=== PATIENT | female | born 1985 | race Caucasian/White ===

== ENCOUNTER 2022-05-11 11:41 | Outpatient (CLI) | payer OTHER, SELFPAY ==
--- OUTSIDE RECORDS SUMMARY | 2022-05-11 11:59 | XMS_ITS | Encounter Summary ---
:1985 Author Organization [place] Address [address] [place] [id number] Care Team Providers Name Role Phone Mp Cordero MD Primary Care Provider Unavailable Reason for Visit Reason Comments Hypertension Encounter Details Date Type Department Care Team Description 10/12/2021 - Emergency [facility] Rachel Henley MD Hypertension, unspecified type; 10/13/2021 [facility] Emergency [facility] Tracee rtness of breath Dept [place] [address] [place] [address] [phone] Social History Tobacco Use Types Packs/Day Years Used Date Smoking Tobacco: Never Smokeless Tobacco: Never Alcohol Use Standard Drinks/Week Comments Yes 0.8 (1 standard drink = 0.6 oz pure alco hol) Sex Assigned at Date Recorded Not on file COVID-19 Exposure Response Date Recorded In the last 10 days, have you been in contact with No / Unsu re 10/12/2021 8:57 PM CDT someone who was confirmed or suspected to have Coronavirus/COVID-19? documented as of this encounter Last Filed Vital Signs Vital Sign Reading Time Taken Comments Blood Pressure 148/85 10/13/2021 12:18 AM CDT Pulse 91 10/13/2021 12:18 AM CDT Temperature 36.4 ??C (97.5 ??F) 10/12/2021 9:34 PM CDT Respiratory Rate 18 10/12/2021 9:34 PM CDT Oxygen Saturation 97% 10/12/2021 9:34 PM CDT Inhaled Oxygen Concentration - - Weight - - Height - - Body Mass Index - - documented in this encounter Discharge Instructions Discharge InstructionsJose Manuel Henley MD - 10/13/2021 12:07 AM CDT Discharge Instructions Hypertension - High Blood Pressure During you visit to the Emergency Department, your blood pressure was higher than the recommended blood pressure. This may be related to stress, pain, medication or other temporary conditions. In thesecases, your blood pressure may return to normal on its own. If you have a history of high blood pressure, you may need to have your provider adjust your medications. Sometimes, your high measurement here may indicate that you have developed high blood pressure that will stay high unless it is treated.As a general rule, high blood pressure causes problems over years rather than days, weeks, or months. So, while it is important to treat blood pressure, it is rarely important to treat blood pressure immediately. Occasionally we will begin a medication in the Emergency Department; more often we will recommend close follow-up for medications with a primary doctor/clinic. Generally, every Emergency Department visit should have a follow-up clinic visit with either a primary or a specialty clinic/provider. Please follow-up as instructed by your emergency provider today. Return to the Emergency Department if you start to have: A severe headache. Chest pain. Shortness of breath. Weakness or numbness that affects one part of the body. Confusion. Vision changes. Significant swelling of legs and/or eyes. A reaction to any medication started in the Emergency Department. What can I do to help myself? Avoid alcohol. Take any blood pressure medicine that you are prescribed. Get a good night???s sleep. Lower your salt intake. Exercise. Lose weight. Manage stress. See your doctor regularly If blood pressure medication was started in the Emergency Department: The medicine may not have an immediate effect. The body and brain determine what blood pressure you have. The medicine???s job is to retrain the body???s ???thermostat?? to a lower blood pressure. You will need to follow up with your provider to see how this medicine is working for you. If you were given a prescription for medicine here today, be sure to read all of the information (including the package insert) that comes with your prescription. This will include important information about the medicine, its side effects, and any warnings that you need to know about. The pharmacist who fills the prescription can provide more information and answer questions you may have about the medicine. If you have questions or concerns that the pharmacist cannot address, please call or return to the Emergency Department. Remember that you can always come back to the Emergency Department if you are not able to see your regular provider in the amount of time listed above, if you get any new symptoms, or if there is anything that worries you. documented in this encounter ED Notes Magda Jones RN - 10/12/2021 9:36 PM CDT Images from the original note were not included. Pt reports elevated BP in the 180s systolic all day. Denies hx of HTN. Denies chest pain, notes it feels hard to take a deep breath. Traveled by plane this past weekend. Tonight noted increased tightness in left calf. Calf does appear more swollen when compared to right. ABCs intact A&Ox4 Triage Assessment Row Name 10/12/21 2185 Triage Assessment (Adult) Airway WDL WDL Respiratory WDL Respiratory WDL X;rhythm/pattern Rhythm/Pattern, Respiratory other (see comments) feels like she can't take a deep breath Jose Manuel Henley MD - 10/12/2021 8:56 PM CDT History Chief Complaint: Hypertension HPI Lyubov Gomez is a 36 year old female with history of high cholesterol who presents with chest pain and leg swelling. Patient is concerned of hypertension as her systolic BP has been in the 130slast week, and today it has been 180s all day. 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 She was told to follow up with PCP and has not yet. She also complains of intermittent dull chest pain. She also felt hard to take a deep breath sometimes and denies pain with breathing. Her left calf feels tight but not painful. Her left ankle was swollen last night that has resolved. She recently traveled to [place] by plane for vacation this past weekend. 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 She is not on BP medications. She reports a history of high cholesterol. No fever, chills, cough. No headache, vision changes, weakness, numbness, speech change, or walking difficulty. Review of Systems Constitutional: Negative for chills and fever. Eyes: Negative for visual disturbance. Respiratory: Positive for shortness of breath. Negative for cough. Cardiovascular: Positive for chest pain. Negative for leg swelling. Musculoskeletal: Positive for joint swelling. Neurological: Negative for speech difficulty, weakness, numbness and headaches. All other systems reviewed and are negative. Allergies: No Known Allergies Medications: No current outpatient medications on file. Past Medical History: Pain in joint Past Surgical History: No past surgical history on file. Family History: No family history on file. Social History: Presents alone via private car. Never smoker. Occasional alcohol use, 1 drink per week. Physical Exam Patient Vitals for the past 24 hrs: BP Temp Temp src Pulse Resp SpO2 10/13/21 0018 (!) 148/85 -- -- 91 -- -- 10/12/21 2134 (!) 191/101 97.5 ??F (36.4 ??C) Temporal (!) 131 18 97 % Physical Exam Constitutional: Well appearing. HEENT: Atraumatic. PERRL. EOMI. Moist mucous membranes. Neck: Soft. Supple. No JVD. Cardiac: Regular rate and rhythm. No murmur or rub. Respiratory: Clear to auscultation bilaterally. No respiratory distress. No wheezing, rhonchi, or rales. Abdomen: Soft and nontender. Nondistended. Musculoskeletal: No edema. Normal range of motion. Neurologic: Alert and oriented. Normal tone and bulk. 5/5 strength in bilateral upper and lower extremities. Sensation to light touch intact throughout. Normal gait. Skin: No rashes. No edema. Psych: Normal affect. Normal behavior. Emergency Department Course ECG ECG obtained at 2143, ECG read at 2310 Sinus tachycardia. Rate 106 bpm. AL interval 176 ms. QRS duration 74 ms. QT/QTc 362/480 ms. P-R-T axes 37 26 20. Imaging: XR Chest 2 Views Final Result IMPRESSION: Heart size is normal. Lungs are clear bilaterally. Mediastinum and visualized bony structures are unremarkable. Report per radiology Laboratory: Labs Ordered and Resulted from Time of ED Arrival to Time of ED Departure COMPREHENSIVE METABOLIC PANEL - Abnormal Result Value Sodium 142 Potassium 3.3 (*) Chloride 108 Carbon Dioxide (CO2) 28 Anion Gap 6 Urea Nitrogen 12 Creatinine 0.71 Calcium 8.7 Glucose 110 (*) Alkaline Phosphatase 69 AST 30 ALT 68 (*) Protein Total 6.9 Albumin 3.4 Bilirubin Total 0.2 GFR Estimate >90 D DIMER QUANTITATIVE - Normal D-Dimer Quantitative 0.36 TROPONIN I - Normal Troponin I High Sensitivity 5 CBC WITH PLATELETS AND DIFFERENTIAL WBC Count 8.0 RBC Count 4.30 Hemoglobin 13.2 Hematocrit 37.8 MCV 88 MCH 30.7 MCHC 34.9 RDW 12.4 Platelet Count 249 % Neutrophils 66 % Lymphocytes 26 % Monocytes 5 % Eosinophils 3 % Basophils 0 % Immature Granulocytes 0 NRBCs per 100 WBC 0 Absolute Neutrophils 5.2 Absolute Lymphocytes 2.1 Absolute Monocytes 0.4 Absolute Eosinophils 0.2 Absolute Basophils 0.0 Absolute Immature Granulocytes 0.0 Absolute NRBCs 0.0 Emergency Department Course: Reviewed: I reviewed nursing notes, vitals, past medical history and Care Everywhere Assessments: 2145 I obtained history and examined the patient as noted above. I rechecked the patient and explained findings. Interventions: 0010 KCl tablet 30mEq po Disposition: The patient was discharged to home. Impression & Plan Medical Decision Making: Lyubov Gomez Is a 36-year-old woman who is afebrile and noted to be hypertensive. She is neurologically intact. EKG and troponin are within normal limits. Lab work-up is unremarkable outside some mild hypokalemia. She is neurologically intact. D-dimer is within normal limits and she has some he aviness in her chest with no specific pleuritic chest pain or tachycardia or hypoxia to suggest a PE. She is some vague feeling in her left calf that may be related to overuse recently while she traveled with no edema or signs of infection or acute ischemic limb. D-dimer is within normal limits makinga PE DVT exceedingly unlikely. Her blood pressures improved spontaneously. We discussed that there is no endorgan ischemia and she is safe to follow close with her primary care physician. Discussed starting a low-dose medication such as lisinopril versus follow-up primary care physician and she would prefer follow- up with her primary care physician which is reasonable. We discussed supportive care athome and strict return precautions were given. Questions were answered and she was in no distress attime of discharge. Diagnosis: ICD-10-CM 1. Hypertension, unspecified type I10 2. Shortness of breath R06.02 Scribe Disclosure: I, Jose Armando Lincoln, am serving as a scribe at 9:46 PM on 10/12/2021 to document services personally performed by Jose Manuel Henley MD based on my observations and the provider's statements to me. oJse Manuel Henley MD 10/13/21 [id number] documented in this encounter Plan of Treatment Not on filedocumented as of this encounter Procedures Procedure Name Priority Date/Time Associated Comments Diagnosis XR CHEST 2 VIEWS STAT 10/12/2021 11:47 Results for this PM CDT procedure are i n the results section. EXTRA TUBE STAT 10/12/2021 10:45 Results for this PM CDT procedure are i n the results section. EXTRA RED TOP TUBE STAT 10/12/2021 10:45 Resul ts for this PM CDT procedure are i n the results section. CBC WITH PLATELETS AND STAT 10/12/2021 10:45 R esults for this DIFFERENTIAL PM CDT procedure are i n the results section. CBC WITH PLATELETS & STAT 10/12/2021 10:45 Res ults for this DIFFERENTIAL PM CDT procedure are i n the results section. TROPONIN I STAT 10/12/2021 10:45 Results for this PM CDT procedure are i n the results section. D DIMER QUANTITATIVE STAT 10/12/2021 10:45 Res ults for this PM CDT procedure are i n the results section. COMPREHENSIVE STAT 10/12/2021 10:45 Results fo r this METABOLIC PANEL PM CDT procedure ar e in the results section. EKG 12-LEAD, TRACING STAT 10/12/2021 9:43 PM R esults for this ONLY CDT procedure are i n the results section. documented in this encounter Results XR Chest 2 Views (10/12/2021 11:47 PM CDT) Anatomical Region Laterality Modality Chest Digital Radiography Specimen (Source) Anatomical Collection Method Collection Time Re ceived Time Location / / Volume Laterality 10/12/2021 11:37 PM CDT Impressions 10/12/2021 11:59 PM CDT IMPRESSION: Heart size is normal. Lungs are clear bi laterally. Mediastinum and visualized bony structures are unremarkable. Narrative 10/12/2021 11:59 PM CDT EXAM: XR CHEST 2 VW LOCATION: [facility] DATE/TIME: 10/12/2021 11:37 PM INDICATION: Shortness of breath COMPARISON: 04/08/2007 Procedure Note Darrian Ang MD - 10/13/2021Formatt ing of this note might be different from the original. EXAM: XR CHEST 2 VW LOCATION: [facility] DATE/TIME: 10/12/2021 11:37 PM INDICATION: Shortness of breath COMPARISON: 04/08/2007 IMPRESSION: Heart size is normal. Lungs are clear bi laterally. Mediastinum and visualized bony structures are unremarkable. Jose Manuel Henley MD IMG DIAGNOSTIC IMAGING ORDER LEYLA Extra Red Top Tube (10/12/2021 10:45 PM CDT) P athologist Signature Hold Specimen JIC 10/13/2021 [facility] 12:03 AM CDT Specimen Anatomical Collection Method / Collection Time Recei mari Time (Source) Location / Volume Laterality Blood VENOUS LINE / Venipuncture / 10/12/2021 10:45 10/13/19 22 Unknown Unknown PM CDT 10:53 PM CDT Jose Manuel Henley MD LAB - BLOOD ORDERABLES Performing Organization Address City/State/ZIP Code Phon [place] [phone] [facility] [address] Lab (1st floor, no room number) CBC with platelets and differential (10/12/2021 10:45 PM CDT) Analysis Performed At Patho logist Time Signature WBC Count 8.0 4.0 - 11.0 10/12/2021 [facility] 10e3/uL 10:57 PM CDT RBC Count 4.30 3.80 - 10/12/2021 [facility] 5.20 10:57 PM CDT 10e6/uL Hemoglobin 13.2 11.7 - 10/12/2021 [facility] 15.7 g/dL 10:57 PM CDT Hematocrit 37.8 35.0 - 10/12/2021 [facility] 47.0 % 10:57 PM CDT MCV 88 78 - 100 10/12/2021 [facility] fL 10:57 PM CDT MCH 30.7 26.5 - 10/12/2021 [facility] 33.0 pg 10:57 PM CDT MCHC 34.9 31.5 - 10/12/2021 [facility] 36.5 g/dL 10:57 PM CDT RDW 12.4 10.0 - 10/12/2021 [facility] 15.0 % 10:57 PM CDT Platelet Count 249 150 - 450 10/12/2021 [facility] 10e3/uL 10:57 PM CDT % Neutrophils 66 % 10/12/2021 [facility] 10:57 PM CDT % Lymphocytes 26 % 10/12/2021 [facility] 10:57 PM CDT % Monocytes 5 % 10/12/2021 [facility] 10:57 PM CDT % Eosinophils 3 % 10/12/2021 [facility] 10:57 PM CDT % Basophils 0 % 10/12/2021 [facility] 10:57 PM CDT % Immature 0 % 10/12/2021 [facility] Granulocytes 10:57 PM CDT NRBCs per 100 WBC 0 <1 /100 10/12/2021 [facility] RY 10:57 PM CDT Absolute 5.2 1.6 - 8.3 10/12/2021 [facility] Neutrophils 10e3/uL 10:57 PM CDT Absolute 2.1 0.8 - 5.3 10/12/2021 [facility] Lymphocytes 10e3/uL 10:57 PM CDT Absolute 0.4 0.0 - 1.3 10/12/2021 [facility] Monocytes 10e3/uL 10:57 PM CDT Absolute 0.2 0.0 - 0.7 10/12/2021 [facility] Eosinophils 10e3/uL 10:57 PM CDT Absolute 0.0 0.0 - 0.2 10/12/2021 [facility] Basophils 10e3/uL 10:57 PM CDT Absolute Immature 0.0 <=0.4 10/12/2021 [facility] Granulocytes 10e3/uL 10:57 PM CDT Absolute NRBCs 0.0 10e3/uL 10/12/2021 [facility] 10:57 PM CDT Specimen Anatomical Collection Method / Collection Time Recei mari Time (Source) Location / Volume Laterality Blood VENOUS LINE / Venipuncture / 10/12/2021 10:45 10/13/19 22 Unknown Unknown PM CDT 10:53 PM CDT Jose Manuel Henley MD LAB - BLOOD ORDERABLES Performing Organization Address City/[facility]/ZIP Code Phon [place] [address] Care [facility] [address] Lab (1st floor, no room number) Troponin I (now) (10/12/2021 10:45 PM CDT) P athologist Signature Troponin I High 5 <54 ng/L 10/12/2021 [facility] Sensitivity 11:14 PM CDT Comment: This Troponin-I result was obta ined using a Siemens Dimension Lovell High Sensitivity Troponin-I assay (TNIH). Eff ective 05/02/21, nine labs/sites in the [facility] switched from a Siemens Lovell Contemporary Troponin I assay (CTNI) to a Siemens Lovell High-Sensitivity Troponi n I assay (TNIH). Specimen Anatomical Collection Method / Collection Time Recei mari Time (Source) Location / Volume Laterality Blood VENOUS LINE / Venipuncture / 10/12/2021 10:45 10/13/19 22 Unknown Unknown PM CDT 10:53 PM CDT Jose Manuel Henley MD LAB - BLOOD ORDERABLES Performing Organization Address City/[facility]/ZIP Code Phon [place] [address] Care Lab [address] Lab (1st floor, no room number) (ABNORMAL) Comprehensive metabolic panel (10/12/2021 10:45 PM CDT) Patholo gist Method Time Signature Sodium 142 133 - 144 10/12/2021 [facility] mmol/L 11:12 PM CDT Potassium 3.3 (L) 3.4 - 5.3 10/12/2021 [facility] mmol/L 11:12 PM CDT Chloride 108 94 - 109 10/12/2021 [facility] mmol/L 11:12 PM CDT Carbon Dioxide 28 20 - 32 10/12/2021 LABORATORY (CO2) mmol/L 11:12 PM CDT Anion Gap 6 3 - 14 10/12/2021 [facility] mmol/L 11:12 PM CDT Urea Nitrogen 12 7 - 30 10/12/2021 LAB[facility]ORY mg/dL 11:12 PM CDT Creatinine 0.71 0.52 - 10/12/2021 [facility] 1.04 mg/dL 11:12 PM CDT Calcium 8.7 8.5 - 10.1 10/12/2021 [facility] mg/dL 11:12 PM CDT Glucose 110 (H) 70 - 99 10/12/2021 [facility] mg/dL 11:12 PM CDT Alkaline 69 40 - 150 10/12/2021 [facility] Phosphatase U/L 11:12 PM CDT AST 30 0 - 45 U/L 10/12/2021 [facility] 11:12 PM CDT ALT 68 (H) 0 - 50 U/L 10/12/2021 [facility] 11:12 PM CDT Protein Total 6.9 6.8 - 8.8 10/12/2021 [facility] g/dL 11:12 PM CDT Albumin 3.4 3.4 - 5.0 10/12/2021 [facility] g/dL 11:12 PM CDT Bilirubin Total 0.2 0.2 - 1.3 10/12/2021 [facility] mg/dL 11:12 PM CDT GFR Estimate >90 >60 10/12/2021 [facility] mL/min/1.7 11:12 PM CDT 3m2 Comment: Effective May 30, 2021 eGF Rcr in adults is calculated using the 2020 CKD-EPI creatinine equation which includ es age and gender (Iliana et al., NEJM, DOI: 10.1056/LAWKam3786075) Specimen Anatomical Collection Method / Collection Time Recei mari Time (Source) Location / Volume Laterality Blood VENOUS LINE / Venipuncture / 10/12/2021 10:45 10/13/19 22 Unknown Unknown PM CDT 10:53 PM CDT Jose Manuel Henley MD LAB - BLOOD ORDERABLES Performing Organization Address City/State/ZIP Code [place] [address] Care [facility] [address] Lab (1st floor, no room number) D dimer quantitative (10/12/2021 10:45 PM CDT) Analysis Performed At Patho logist Time Signature D-Dimer 0.36 0.00 - 10/12/2021 LABORATORY Quantitative 0.50 ug/mL 11:18 PM CDT FEU Specimen Anatomical Collection Method / Collection Time Recei mari Time (Source) Location / Volume Laterality Blood VENOUS LINE / Venipuncture / 10/12/2021 10:45 10/13/19 22 Unknown Unknown PM CDT 10:53 PM CDT Narrative [facility] - 10/12/2021 11:18 PM CDT This D-dimer assay is intended for use i n conjunction with a clinical pretest probability assessment model to exclude pulmonary embolism (PE) and deep venous thrombosis (DVT) in outpatients suspecte d of PE or DVT. The cut-off value is 0.50 ug/mL FEU. Jose Manuel Henley MD LAB - BLOOD ORDERABLES Performing Organization Address City/State/ZIP Code [place] [address] [facility] [address] Lab (1st floor, no room number) EKG 12-lead, tracing only (10/12/2021 9:43 PM CDT) Component Value Ref Range Test Analysis Performed Pathologis t Method Time At Signature Systolic Blood mmHg RADIOLOGY Pressure RESULTS Diastolic Blood mmHg RADIOLOGY Pressure RESULTS Ventricular Rate 106 BPM RADIOLOGY RESULTS Atrial Rate 106 BPM RADIOLOGY RESULTS AL Interval 176 ms RADIOLOGY RESULTS QRS Duration 74 ms RADIOLOGY RESULTS QT 362 ms RADIOLOGY RESULTS QTc 480 ms RADIOLOGY RESULTS P [place] 37 degrees RADIOLOGY RESULTS R AXIS 26 degrees RADIOLOGY RESULTS T [place] 20 degrees RADIOLOGY RESULTS Interpretation Sinus tachycardia RADIOLO GY ECG Otherwise normal ECG RESULTS When compared with ECG of 08-APR-2007 12:18, Vent. rate has increased BY ??46 BPM T wave amplitude has decreased in Anterolateral leads QT has lengthened Confirmed by - EMERGENCY [facility] Bermudez PHYSICIAN ([id number]), food expeditor MATILDA HERRERA ([id number]) on 10/13/2021 7:13:46 AM Specimen Anatomical Collection Method Collection Time Receive d Time (Source) Location / / Volume Laterality 10/12/2021 9:43 PM 7:13 CDT AM CDT Jose Manuel Henley MD ECG ORDERABLES Performing Organization Address City/State/ZIP Code Phon e Number RADIOLOGY RESULTS documented in this encounter Visit Diagnoses Diagnosis Hypertension, unspecified type Shortness of breath documented in this encounter Administered Medications Inactive Administered Medications - up to 3 most recent administrations Medication Order MAR Action Action Date Dose Rate Site potassium chloride ER (KLOR-CON Given 10/13/2021 12:10 AM CDT 40 mEq M) CR tablet 40 mEq 40 mEq, Oral, ONCE, On [place]elima 10/12/21 at 2335, For 1 dose, DO NOT CRUSH documented in this encounter Active and Recently Administered Medications Times are shown in CDT. Scheduled Medication Order 10/11/2021 10/12/2021 10/13/2021 potassium chloride ER (KLOR-CON M) CR tablet 40 mEq (COMPLETED) 0010 (Given - Provider: Jennie Lu RN) 40 mEq, Oral, ONCE, On [place]elima 10/12/21 at 2335, For 1 dose, DO NOT CR [facility] documented in this encounter Care Teams Pool Hand Relationship Specialty Start Date End Date Mp Cordero MD PCP - General Family Practice 03/12/11 documented as of this encounter
--- OUTSIDE RECORDS SUMMARY | 2022-05-11 11:59 | XMS_ITS | Clinical Summary ---
:1985 Author Organization [facility] Address [address] [place] [id number] Care Team Providers Name Role Phone Mp Cordero MD Primary Care Provider Unavailable Allergies No known active allergies Active Problems Problem Noted Date [facility] 03/18/2013 Overview: State Tier Level: Tier 0 Status: n/a Mask Former: n/a See Letters for [facility] Care Plan Pain in joint, ankle and foot 03/12/2011 Social History Tobacco Use Types Packs/Day Years Used Date Smoking Tobacco: Never Smokeless Tobacco: Never Alcohol Use Standard Drinks/Week Comments Yes 0.8 (1 standard drink = 0.6 oz pure alco hol) Sex Assigned at Date Recorded Not on file Last Filed Vital Signs Vital Sign Reading Time Taken Comments Blood Pressure 148/85 10/13/2021 12:18 AM CDT Pulse 91 10/13/2021 12:18 AM CDT Temperature 36.4 ??C (97.5 ??F) 10/12/2021 9:34 PM CDT Respiratory Rate 18 10/12/2021 9:34 PM CDT Oxygen Saturation 97% 10/12/2021 9:34 PM CDT Inhaled Oxygen Concentration - - Weight 98.2 kg (216 lb 6.4 oz) 03/12/2011 10:59 AM CDT Height 171.5 cm (5' 7.5) 03/12/2011 10:59 AM CDT Body Mass Index 33.39 03/12/2011 10:59 AM CDT Plan of Treatment Health Maintenance Due Date Last Done Comments ADVANCE CARE PLANNING 1985 ANNUAL REVIEW OF HM ORDERS 1985 HEPATITIS B IMMUNIZATION (1 1984 of 3 - 3-dose series) YEARLY PREVENTIVE VISIT 1984 HIV SCREENING 09/28/1999 HEPATITIS C SCREENING 2002 PAP 2005 PHQ-2 (once per calendar 06/10/2021 year) COVID-19 Vaccine (4 - 07/06/2021 05/11/2021, 10/06/2020, Booster for Moderna series) 09/08/2020 INFLUENZA VACCINE (#1) 2022 05/11/2021, 04/05/2020, 04/17/2019, Additional history exists DTAP/TDAP/TD IMMUNIZATION 12/29/2025 12/30/2015 (2 - Td or Tdap) IPV IMMUNIZATION Aged Out No longer eligi ble based on patient 's age to complete this topic MENINGITIS IMMUNIZATION Aged Out No longe r eligible based on patient 's age to complete this topic Pneumococcal Vaccine: Aged Out No longer eligible Pediatrics (0 to 5 Years) based on patient's age and At-Risk Patients (6 to to co mplete this topic 64 Years) Insurance Payer Benefit Plan / Subscriber ID Effective Phone Address T ype Group Dates [facility] [id number] 2021-Prese [phone] [address] [address] Jared Chapman Personal/Family Spouse 1985 [address] (Home) [place] [address] Care Teams Licsw Relationship Specialty Start Date End Date Mp Cordero MD PCP - General Family Practice 03/12/11
--- OUTSIDE RECORDS SUMMARY | 2022-05-11 12:00 | XMS_ITS | Encounter Summary ---
:1985 Author Organization [facility] Address [address] [place] [address] Care Team Providers Name Role Phone Mp Cordero MD Primary Care Provider Unavailable Encounter Details Date Type Department Care Team Description 10/12/2021 Travel Social History Tobacco Use Types Packs/Day Years [...] have Coronavirus/COVID-19? documented as of this encounter Plan of Treatment Not on filedocumented as of this encounter Visit Diagnoses Not on filedocumented in this encounter Care Teams Public Speaking Professor Relationship Specialty Start Date End Date Mp Cordero MD PCP - General Family Practice 03/12/11 documented as of this encounter
--- OUTSIDE RECORDS SUMMARY | 2022-05-11 12:00 | XMS_ITS | Encounter Summary ---
:1985 Author Organization [facility] Address [address] [place] [address] Care Team Providers Name Role Phone Mp Cordero MD Primary Care Provider Unavailable Reason for Visit Reason Comments Musculoskeletal Problem Encounter Details Date Type Department Care Team Description 03/12/2011 Office Visit Miko Sellers Mp Cordero Pain in joint, ankle Physicians [facility], and foot (Primary Dx) [address] [place] [phone] Social History Tobacco Use Types Packs/Day Years Used Date Smoking Tobacco: Never Smokeless Tobacco: Never Alcohol Use Standard Drinks/Week Comments Yes 0.8 (1 standard drink = 0.6 oz pure alco hol) Sex Assigned at Date Recorded Not on file documented as of this encounter Last Filed Vital Signs Vital Sign Reading Time Taken Comments Blood Pressure 140/60 03/12/2011 10:59 AM CDT Pulse 116 03/12/2011 11:00 AM CDT Temperature 37 ??C (98.6 ??F) 03/12/2011 11:01 AM CDT Respiratory Rate 18 03/12/2011 10:59 AM CDT Oxygen Saturation - - Inhaled Oxygen Concentration - - Weight 98.2 kg (216 lb 6.4 oz) 03/12/2011 10:59 AM CDT Height 171.5 cm (5' 7.5) 03/12/2011 10:59 AM CDT Body Mass Index 33.39 03/12/2011 10:59 AM CDT documented in this encounter Progress Notes Mp Cordero MD - 03/12/2011 12:44 PM CDT Patient complaint: left ankle pain onset; about 6 months, getting worse, There is no Old or recent injury or Physical activity that might easily explain this particular problem. brief summary of history of problem : she plays v ball and soft ball, No hx of much ankle sprains Has noted some sudden noise and pain, without locking left lateral ankle, she was told one time she had a stress fx in foot , not sure whereor what. She has not pain on walking, the pain can come when she laterally stresses joint getting in adout ofthe car. No swelling, feeling it most every day now Discussion of any physical findings that are relevant: Exam of the ankle reveals it to have a normalrange of motion, no specific pain on motion and no synovial thickening or edema on the dorsum or thesides of the ankle. Muscles of the calf are well developed and there is no foot atrophy and no tinel's sign on palpation. She may be a bit tender in lateral stress but not sure this duplicates what shefeels, AP and lateral Left ankle joint show normal mortise, normal distal tibia and fibula. No soft tissue swelling is noted. ASSESSMENT: could have a subluxing tendon around the lateral malleolus/left ankle PLAN: suggest she see Dr Enrique Melo, orthopedic bibliographic services specialist. She is in her first trimester, so we shielded abdomen today documented in this encounter Nursing Notes 03/12/2011 10:45 AM CDT >> RIVERA RICEAbFIDENCIOKAJAL Mon Mar 12, 2011 11:02 AM Lyubov Chapman is here for left ankle pain. Denies any trauma. Questioned patient about current smoking habits. Pt. has never smoked. Body mass index is 33.39 kg/(m^2). BP Cuff left Arm L Cuff PULSE regular My Chart: CLASSIFICATION OF OVERWEIGHT AND OBESITY BY BMI Obesity Class BMI(kg/m2) Underweight < 18.5 Normal 18.5-24.9 Overweight 25.0-29.9 OBESITY I 30.0-34.9 II 35.0-39.9 EXTREME OBESITY III >40 Patient's BMI Body mass index is 33.39 kg/(m^2). http://hin.nhlbi.nih.gov/menuplanner/menu.cgi documented in this encounter Plan of Treatment Not on filedocumented as of this encounter Procedures Procedure Name Priority Date/Time Associated Diagnosis Comme nts XR ANKLE LEFT G/E 3 Routine 03/12/2011 Pain in joint, ankle Results for this VIEWS and foot procedure are i n the results section . documented in this encounter Results X-ray lt ankle G/E 3 views* (03/12/2011) Anatomical Region Laterality Modality Leg, Ankle, Foot Left Other Narrative 03/12/2011 [facility] Phone: [phone] * Fax: [phone], [place] [address] Age: 25 Y Work Phone: Dept No.: [id number] LYUBOV CHAPMAN : 1985 Home Phon e: Chart # Req. Phys: Mp Cordero MRN: Clinic: [facility] c#: [id number] Exam: ANKLE 3 VIEWS / LT Exam Date: 08/2010 ANKLE 3 VIEWS LEFT Mar 12, 2011 12:02:00 PM HISTORY: Pain and clicking lateral left ankle for six months. COMPARISON: None. FINDINGS: There is normal bony alignment . No fractures are identified. IMPRESSION: Osseous structures appear no rmal. Performed by: VALDEMAR Transcribed By: SRAVAN on: 03/12/2011 12:22 PM CDT Finalized By: TROY BURCIAGA M.D. on: 12:28 PM CDT Dictated By: TROY BURCIAGA M.D. Sign ed by: [facility] Thank You for using [facility] Imaging P age 1 of 1 Mp Cordero MD IMG DIAGNOSTIC IMAGING ORDER LEYLA documented in this encounter Visit Diagnoses Diagnosis Pain in joint, ankle and foot - Primary documented in this encounter Care Teams Information Technology Technician Relationship Specialty Start Date End Date Mp Cordero MD PCP - General Family Practice 03/12/11 documented as of this encounter
--- OUTSIDE RECORDS SUMMARY | 2022-05-11 12:00 | XMS_ITS | Clinical Summary ---
:1985 Author Organization [facility] [place] [address] Care Team Providers Name Role Phone Ruby Martins MASONRY INSPECTOR Primary Care Provider [phone] Lianne Borja MD Unavailable [phone] Allergies No known active allergies Medications Not on file Active Problems Not on file Social History Tobacco Use Types Packs/Day Years Used Date Never Assessed Sex Assigned at Date Recorded Not on file Last Filed Vital Signs Vital Sign Reading Time Taken Comments Blood Pressure 146/82 03/23/2008 3:38 PM CDT Pulse 81 03/23/2008 3:38 PM CDT Temperature - - Respiratory Rate - - Oxygen Saturation - - Inhaled Oxygen Concentration - - Weight 78.5 kg (173 lb) 03/23/2008 3:38 PM CDT Height - - Body Mass Index - - Plan of Treatment Health Maintenance Due Date Last Done Comments COVID-19 vaccine series (#1) 03/29/1985 Tdap 09/28/1995 Depression screening for age 12+ 1996 HIV for age 15-65 09/28/1999 BMI (ht and wt on same day) for 2002 age 18+ Hepatitis C screening for age 0409/27/2002 18-79 Tetanus booster 2004 Pap test for age 21-65 07/30/2019 07/30/2016, 07/30/2016, 07/22/2015, Additional history exists Influenza for age 9-49 02/08/2022 Results Not on filefrom Last 3 Months Insurance Payer Benefit Plan / Subscriber ID Effective Dates Phone Addre ss Type Group [facility] [id number] 2020-Present [address] [address] [place] [address] Care Teams Avionics Technician Relationship Specialty Start Date End Date Ruby Martins NP PCP - General Nurse Practitioner 09/14/20 [address] [place] [address] Lianne Borja MD 09/14/20 [address] [place] [address]
--- OUTSIDE RECORDS SUMMARY | 2022-05-11 12:00 | XMS_ITS | Encounter Summary ---
:1985 Author Organization [facility] Address [address] [place] [address] Care Team Providers Name Role Phone Unavailable Primary Care Provider Unavailable Encounter Details Date Type Department Care Team Description 04/08/2007 Historic Results INTERFACED REPORT Jose Enrique Sparks MD EMERGENCY PHYSIC [facility] [address] [place], [place] [address] (Wo rk) Social History Tobacco Use Types Packs/Day Years Used Date Smoking Tobacco: Never Assessed Sex Assigned at Date Recorded Not on file documented as of this encounter Plan of Treatment Not on filedocumented as of this encounter Procedures Procedure Name Priority Date/Time Associated Comments Diagnosis D DIMER QUANTITATIVE STAT 04/08/2007 12:10 Res ults for this PM CDT procedure are i n the results section. documented in this encounter Results D dimer quantitative (04/08/2007 12:10 PM CDT) P athologist Signature D Dimer <0.2 0.0 - 0.50 MISYS ug/ml FEU Specimen Anatomical Collection Method Collection Time Receive d Time (Source) Location / / Volume Laterality 04/08/2007 12:10 04/08/2007 1:13 PM CDT PM CDT Francisco Sparks MD LAB - BLOOD ORDERABLES Performing Organization Address City/State/ZIP Code Phon e Number MISYS documented in this encounter Visit Diagnoses Not on filedocumented in this encounter
--- OUTSIDE RECORDS SUMMARY | 2022-05-11 12:00 | XMS_ITS | Encounter Summary ---
:1985 Author Organization [facility] Address [address] [place] [address] Care Team Providers Name Role Phone Mp Cordero MD Primary Care Provider Unavailable Encounter Details Date Type Department Care Team Description 04/08/2007 Historic Results INTERFACED REPORT InterfaceCleveland MD Social History Tobacco Use Types Packs/Day Years Used Date Smoking Tobacco: Never Assessed Sex Assigned at Date Recorded Not on file documented as of this encounter Plan of Treatment Not on filedocumented as of this encounter Procedures Procedure Name Priority Date/Time Associated Diagnosis Comme nts EKG 12 LEAD Routine 04/08/2007 12:18 PM Results for this CDT procedure are i n the results section . documented in this encounter Results EKG 12 LEAD (04/08/2007 12:18 PM CDT) Component Value Ref Range Test Analysis Performed Pathologis t Method Time At Signature Ventricular Rate 60 BPM RADIOLOGY RESULTS Atrial Rate 60 BPM RADIOLOGY RESULTS NM Interval 162 ms RADIOLOGY RESULTS QRS Duration 80 ms RADIOLOGY RESULTS QT 404 ms RADIOLOGY RESULTS QTc 404 ms RADIOLOGY RESULTS P [place] 33 degrees RADIOLOGY RESULTS R AXIS 39 degrees RADIOLOGY RESULTS T [place] 32 degrees RADIOLOGY RESULTS Interpretation AGE AND GENDER SPECIFIC ECG ANALYSIS RADIOLOGY ECG Sinus rhythm RESULTS Normal ECG Unconfirmed report - interpretation of this ECG is compute r generated - see medical record for final interpretation Specimen Anatomical Collection Method Collection Time Receive d Time (Source) Location / / Volume Laterality 04/08/2007 12:18 04/10/2007 8:13 PM CDT AM CDT Transcripton Interface ECG ORDERABLES Performing Organization Address City/State/ZIP Code Phon e Number RADIOLOGY RESULTS documented in this encounter Visit Diagnoses Not on filedocumented in this encounter Care Teams Pilot Steam Yacht Relationship Specialty Start Date End Date Mp Cordero MD PCP - General Family Practice 03/12/11 documented as of this encounter
--- OUTSIDE RECORDS SUMMARY | 2022-05-11 12:00 | XMS_ITS | Encounter Summary ---
:1985 Author Organization [facility] Address [address] [place] [address] Care Team Providers Name Role Phone Unavailable Primary Care Provider Unavailable Encounter Details Date Type Department Care Team Description 04/08/2007 [facility] EM[facility]Y [facility] [address] [place], [place] [phone] (Wo rk) Social History Tobacco Use Types Packs/Day Years Used Date Smoking Tobacco: Never Assessed Sex Assigned at Date Recorded Not on file documented as of this encounter Plan of Treatment Not on filedocumented as of this encounter Procedures Procedure Name Priority Date/Time Associated Diagnosis Comme nts CHEST TWO VIEWS, Routine 04/08/2007 12:56 PM R esults for this FRONT/LAT CDT procedure are i n the results section. documented in this encounter Results CHEST X-RAY 2 VW (04/08/2007 12:56 PM CDT) Anatomical Region Laterality Modality Other Specimen (Source) Anatomical Collection Method Collection Time Re ceived Time Location / / Volume Laterality 04/08/2007 12:56 PM CDT Impressions 04/08/2007 4:47 PM CDT EXAM: ??CHEST TWO VIEW* HISTORY: Dyspnea FINDINGS: Negative. Francisco Sparks MD GENERAL IMAGING documented in this encounter Visit Diagnoses Not on filedocumented in this encounter
--- OUTSIDE RECORDS SUMMARY | 2022-05-11 12:00 | XMS_ITS | Encounter Summary ---
:1985 Author Organization [facility] Address [facility] [place] [address] Care Team Providers Name Role Phone Unavailable Primary Care Provider Unavailable Reason for Visit Reason Onset Date Comments Chest Pain 04/08/2007 Encounter Details Date Type Department Care Team Description 04/08/2007 Telephone [facility] None Chest Pain [address] [place], [place] [phone] Social History Tobacco Use Types Packs/Day Years Used Date Smoking Tobacco: Never Assessed Sex Assigned at Date Recorded Not on file documented as of this encounter Miscellaneous Notes Telephone Encounter - Mary Beckman - 04/08/2007 10:54 AM CDT Lyubov Miles is a 21 year old female who calls with Chest Pain The pain began 5 days ago. Severity is stated as moderate. Rating on pain scale is 5. The pain is described as tight, with radiation to right neck/jaw. Symptoms associated with the chest pain SOB. Significant history includes family history of diabetes and heart disease. She was diagnosed with a heart murmur earlier this year but is unsure of what kind. Pain is aggravated by moderate activity, and relieved by none. Patient has also tried none. Plan Emergency Room. Patient informed of the following home remedies none. Patient agrees with this plan. Mary Beckman RN documented in this encounter Plan of Treatment Not on filedocumented as of this encounter Visit Diagnoses Not on filedocumented in this encounter
--- OUTSIDE RECORDS SUMMARY | 2022-05-11 12:00 | XMS_ITS | Encounter Summary ---
:1985 Author Organization [facility] Address [address] [place] [address]. [place] [address] Care Team Providers Name Role Phone Unavailable Primary Care Provider Unavailable Encounter Details Date Type Department Care Team Description 04/08/2007 Emergency room Power Sparks MD EMERGENCY PHYSIC [facility] [address] [facility] [address] [place], [place] [address] (Wo rk) Social History Tobacco Use Types Packs/Day Years Used Date Smoking Tobacco: Never Assessed Sex Assigned at Date Recorded Not on file documented as of this encounter Progress Notes Power Sparks - 04/14/2007 6:06 AM SUPERVISOR IN CIRCUIT TESTING FINAL PRIMARY CARE PHYSICIAN: The patient's primary care physician is at [facility]. CHIEF COMPLAINT/HISTORY OF PRESENT ILLNESS: She has had a 3-day history of some shortness of breathwith some sharp chest pains with no radiation to the pains. Primarily anterior chest wall pains. Shehas had no recent falls or other injuries. She has had no cough, no hemoptysis. No fever or chills. The pain is now gone, but she states she feels like she cannot get a full breath of air. She has had no rash. ALLERGIES: None. MEDICATIONS: control pills. PAST MEDICAL HISTORY: Hypertension and heart murmur. SOCIAL HISTORY: Occasionally uses alcohol and does not smoke. FAMILY HISTORY: Negative. REVIEW OF SYSTEMS: Ten-point review of systems all negative except as noted in the history of present illness. PHYSICAL EXAMINATION: VITAL SIGNS: Blood pressure 146/93 in the right arm, 140/90 in the left arm, pulse is 87, respiratory rate is 20, temperature is 97.6 and pulse oximetry 100% on room air. GENERAL: This is an alert, cooperative and pleasant young woman complaining of this feeling of not being able to take a full breath. She is lying comfortably on the cart and she is satting at 100%. SKIN: Warm and dry, not diaphoretic. There is no rash noted. Her eyes Are not sunken without any conjunctival injection or hemorrhage.Her mouth and throat are normal. Tongue is midline. NECK: Supple, without adenopathy. LUNGS: Clear to auscultation, no rales or rhonchi, no friction rubs or wheezing. She seems to be able to fill her lungs without any trouble. HEART: Heart shows regular rate and rhythm and she does have a subtle murmur. ABDOMEN: Soft, nontender to palpation, no guarding, no rebound and no palpable masses. BACK: Nontender to palpation. NEUROLOGIC: Alert and oriented x3 with good CMS in all extremities. EMERGENCY DEPARTMENT LABORATORY AND DIAGNOSTIC DATA: EKG normal sinus rhythm with a normal rate of 60. The chest x-ray is normal. D-dimer was less than 0.2. EMERGENCY DEPARTMENT COURSE: I had a discussion with her about this and she decided not to try any tranquilizers. EMERGENCY DEPARTMENT DISCHARGE PLAN: The patient is to return if she has any coughing up of blood. See her physician in 3-4 days if symptoms persist. EMERGENCY DEPARTMENT DIAGNOSIS: Episodic pleuritic pain. EMERGENCY DEPARTMENT CONDITION: Stable. Electronically signed on 04/14/2007 06:05 by POWER SPARKS MD MT: NEYMAR#[id number] Name: LYUBOV SWAN Account: [id number] : 1985 Visit Date: 04/08/2007 Document: [id number] cc: [facility] RVISOR IN CIRCUIT TESTING documented in this encounter Plan of Treatment Not on filedocumented as of this encounter Visit Diagnoses Not on filedocumented in this encounter
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
[2022-05-12 00:38] LABS: Albumin* 4.6 g/dL (3.3-5.0)
[2022-05-12 00:39] LABS: Chloride* 106 mmol/L (96-114); Potassium* 5.1 mmol/L (3.6-5.1); Sodium* 139 mmol/L (135-149)
[2022-05-12 00:41] LABS: Bilirubin Total* 0.3 mg/dL (0.1-1.5); Carbon Dioxide* 24 mmol/L (20-32); Cholesterol* 187 mg/dL (90-199); Creatinine* 0.8 mg/dL (0.5-1.5); Estimated Glomerular Filt Rate 97 ml/min
[2022-05-12 00:42] LABS: Alanine Aminotransferase* 25 U/L (4-35); Alkaline Phosphatase* 72 U/L (40-150); Aspartate Amino Transferase* 24 U/L (12-35); Blood Urea Nitrogen* 13 mg/dL (5-24); Calcium* 9.8 mg/dL (8.4-10.6); Glucose* 98 mg/dL (60-115); HDL Cholesterol* 50 mg/dL (>=50); LDL Cholesterol Calculated 117 mg/dL (<100); Total Protein* 7.4 g/dL (6.0-8.3); Triglycerides* 102 mg/dL (40-149)
== END 2022-05-11 11:42 | disposition home or self-care (01) ==
LOC: LKVREF 11:41
PROVIDERS: PCP Internal Medicine; Visit Provider Internal Medicine
DX: E78.5 Hyperlipidemia, unspecified (principal)
CPT/HCPCS: 80053; 80061

== ENCOUNTER 2023-03-11 14:40 | Outpatient (CLI) | payer SELFPAY | END 2023-03-11 14:41 | disposition home or self-care (01) | LOC: NFLDREF 03-13 11:25 | PROVIDERS: PCP Internal Medicine; Referring Provider Internal Medicine; Visit Provider Internal Medicine | DX: E78.5 Hyperlipidemia, unspecified (principal); K76.0 Fatty (change of) liver, not elsewhere classified | CPT/HCPCS: 84450; 84460 ==

== ENCOUNTER 2023-05-08 19:31 | Outpatient (CLI) | payer OTHER, SELFPAY | END 2023-05-08 19:32 | disposition home or self-care (01) | LOC: SLEEP 19:32 | PROVIDERS: PCP Internal Medicine; Visit Provider Internal Medicine | DX: G47.33 Obstructive sleep apnea (adult) (pediatric) (principal); E66.9 Obesity, unspecified | CPT/HCPCS: 95806 ==

== ENCOUNTER 2023-09-09 08:35 | Outpatient (CLI) | payer OTHER, SELFPAY | END 2023-09-09 08:36 | disposition home or self-care (01) | LOC: NFLDREF 09-11 06:58 | PROVIDERS: PCP Internal Medicine; Referring Provider Internal Medicine; Visit Provider Internal Medicine | DX: K76.0 Fatty (change of) liver, not elsewhere classified (principal) | CPT/HCPCS: 80053; 80061 ==

== ENCOUNTER 2024-11-11 08:06 | Outpatient (CLI) | payer OTHER, SELFPAY | END 2024-11-11 08:07 | disposition home or self-care (01) | LOC: NFLDREF 11-13 16:39 | PROVIDERS: PCP Internal Medicine; Referring Provider Internal Medicine; Visit Provider Internal Medicine | DX: K76.0 Fatty (change of) liver, not elsewhere classified (principal) | CPT/HCPCS: 80053; 80061 ==

== ENCOUNTER 2024-11-16 08:05 | Outpatient (CLI) | payer OTHER, SELFPAY ==
[2024-11-21 05:43] LABS: HPV Source Cervical; HPV, High Risk by TMA Not Detected
== END 2024-11-16 08:06 | disposition home or self-care (01) ==
PROVIDERS: PCP Internal Medicine; Visit Provider Internal Medicine
DX: Z12.4 Encounter for screening for malignant neoplasm of cervix (principal); Z11.51 Encounter for screening for human papillomavirus (HPV)
CPT/HCPCS: 87624; 87625; 88141; 88142

== ENCOUNTER 2025-03-01 14:50 | Outpatient (CLI) | payer OTHER, SELFPAY ==
--- NOTE | 2025-03-01 15:00 | CRLHL7_ITS ---
For Patients: As a result of the Cures Act, medical imaging exams and procedure reports are released immediately into your electronic medical record. You may view this report before your referring provider. If you have questions, please contact your health care provider. INDICATION: BILATERAL SCREENING MAMMOGRAM, ASYMPTOMATIC 39 Y/O FEMALE COMPARISON: BASELINE TECHNIQUE: Digital mammogram in CC and MLO projections including computer-aided detection (CAD) and tomosynthesis. BREAST COMPOSITION: There are scattered areas of fibroglandular density. FINDINGS: No suspicious findings. ASSESSMENT: BI-RADS 1 Negative RECOMMENDATION: Annual screening mammogram. A lay language report of this examination will be provided to the patient. Dictated by: Desiree Leahy MD @ 03/03/2025 09:46:56 Signed by: Desiree Leahy @ 03/03/2025 9:46:56 AM (Electronic Signature) (Electronically Signed)
== END 2025-03-01 14:51 | disposition home or self-care (01) ==
LOC: MAMMO 14:50
PROVIDERS: PCP Internal Medicine; Visit Provider Internal Medicine
DX: Z12.31 Encounter for screening mammogram for malignant neoplasm of breast (principal)
CPT/HCPCS: 77063; 77067